=== PATIENT | female | born 1970 | race Caucasian/White ===

== ENCOUNTER → 2016-08-17 | Outpatient (CLI) | payer BC ==
[~2016-08-17] MED LIST: ADVIL200 MG PO; ULTRAM50 MG PO; XANAX0.5 MG PO
== END | disposition disaster alternative care site (69) ==
LOC: GRAD 12:56
DX: M25.521 Pain in right elbow (principal); M25.421 Effusion, right elbow

== ENCOUNTER → 2016-08-20 | Outpatient (CLI) | payer BC | END | disposition disaster alternative care site (69) | LOC: GLAB 08-19 07:00 | DX: E27.40 Unspecified adrenocortical insufficiency (principal) ==

== ENCOUNTER → 2016-10-12 | Outpatient (CLI) | payer BC | END | disposition disaster alternative care site (69) | LOC: GLAB 08:00 | DX: E27.40 Unspecified adrenocortical insufficiency (principal) ==

== ENCOUNTER → 2016-10-19 | Outpatient (CLI) | payer BC | END | disposition disaster alternative care site (69) | LOC: GBCOE 14:32 | DX: Z12.31 Encounter for screening mammogram for malignant neoplasm of breast (principal); E27.40 Unspecified adrenocortical insufficiency; M54.9 Dorsalgia, unspecified; Z79.52 Long term (current) use of systemic steroids | CPT/HCPCS: G0202 ==

== ENCOUNTER → 2016-12-15 | Outpatient (CLI) | payer BC | END | disposition disaster alternative care site (69) | LOC: GLAB 08:00 | PROVIDERS: Internal Medicine | DX: E27.40 Unspecified adrenocortical insufficiency (principal) ==

== ENCOUNTER → 2017-02-16 | Outpatient (CLI) | payer BC | END | disposition disaster alternative care site (69) | LOC: GLAB 08:00 | DX: E04.1 Nontoxic single thyroid nodule (principal); E27.40 Unspecified adrenocortical insufficiency ==